=== PATIENT | male | born 1955 | race Caucasian/White ===

== ENCOUNTER 2025-10-23 09:00 | Outpatient (AMB) | payer MEDICARE, SELFPAY ==
--- NOTE | 2025-10-23 09:12 | A.PHYSOV ---
Vital Signs 10/23/25 09:13 Height 6 ft Weight 250 lb BMI 33.9 Intake Visit Reasons: Follow up after injection 08/16/25 Allergies No Known Allergies Allergy (Verified 10/17/25 15:04) HPI Comments Details: History of Present Illness The patient is a 70 year old male presenting for follow-up on chronic pain management for his back and knees. He reports that a recent injection for his back pain provided 80-90% relief. He underwent L5-S1 KIMMY on 08/16/2025. However, he subsequently fell while shoveling, landing directly on his back, though he notes that his back paradoxically felt better the following day, as if it had been put back into alignment. The patient has a history of major resurfacing surgery on his left knee due to severe arthritis, which was so advanced that a surgeon previously questioned how he was able to walk. The left knee is significantly better post-operatively, though he still experiences some soreness. He has now developed pain in his right knee, although the onset was not as acutely severe as his left knee was. Additionally, the patient reports pain in his shoulders that prevents him from sleeping on his side at night. He also mentions intermittent swelling of his left ankle, which he notes is a recurring issue possibly related to a tendon that resolves on its own. Patient is requesting repeat injection of his right knee today. Pain Description - Back: Patient reports that a recent injection provided 80-90% pain relief. - He had a recent fall on his back while shoveling. - Shoulders: Patient reports he cannot sleep on his side at night due to shoulder pain. - Knees: Reports his left knee is sore but not painful. - He has developed pain in the right knee, though it was not an excruciating onset. - Joints: Reports hearing a squeaking sound when walking barefoot at home. Procedure: L5-S1 KIMMY 08/16/2025 80% reduction of his pain right knee corticosteroid injection 10/23/2025 Results - Imaging: Patient reports a prior knee x-ray showed severe changes consistent with advanced arthritis. FORMERLY [facility], 1928–1983 Surgical History (Updated 10/17/25 @ 15:03 by Jolie Bustamante MA) H/O: knee surgery Social History (Updated 10/17/25 @ 15:04 by Jolie Bustamante MA) Alcohol intake: current Alcohol intake frequency: holidays/special occasions only Patient Tobacco Use Status: Current everyday Tobacco user Use of substances other than those prescribed or required for medical reasons: Yes Substance Use Type: Crack/Cocaine and Former Substance User Review of Systems Narrative Review of Systems - Musculoskeletal: Reports back pain, which improved with an injection. - Reports shoulder pain that interferes with sleep. - Reports soreness in the left knee and new pain in the right knee. - Reports intermittent left ankle swelling that resolves spontaneously. - Reports an audible squeak from a joint when walking. Physical Exam Exam Exam: Physical Exam Lumbar Spine: Examination of his lumbar spine, there is no visible swelling or deformity. He is tender to the lower lumbar facets. He has full range of motion of the lumbar spine with less discomfort. Special Tests: Lhermittes sign was negative Heel Toe walk is normal Left straight leg raise: Negative Right straight leg raise: Negative Special tests Loraine test is negative Ganslen's test is negative SI Joint compression test negative Kaveh test negative Piriformis stretch is negative Lower Extremities: Examination of his right knee, there is no effusion no deformity. He is tender to the medial joint line. He is otherwise nontender. Full range of motion of his knee in flexion-extension. Her ligaments are intact. He does have pain with Zahida testing medially. Neuro: Sensation: Intact to lower extremities bilaterally Strength L2 (Psoas): 5/5 on the left and 5/5 on the right. L3 (Quads): 5/5 on the left and 5/5 on the right. L4 (Ant tibialis): 5/5 on the left and 5/5 on the right. L5 (EHL) 5/5 on the left and 5/5 on the right. S1 (Gastroc): 5/5 on the left and 5/5 on the right. DTR L4: (Patellar) Left 2 Right 2 S1: (Achilles) Left 1 Right 1 Babinski Downgoing No pathologic clonus. No involuntary movement. Vital Signs: BMI result Body Mass Index 33.9 Office Procedures AMB Knee Injection AMB Knee Injection Procedure Details: Right Knee injection: The risks, benefits and complications of the right knee injection were discussed with the patient including but not limited to increased serum glucose, infection, nerve pain, fat atrophy, pigment augmentation, bleeding and pain. All questions were answered to the patient's satisfaction. Verbal consent was obtained. The patient was eager to proceed. Using aseptic technique with Betadine, ethyl chloride was then used to desensitize the skin. Using a 22-gauge needle 40 mg of Kenalog and 3 mL 2% lidocaine were injected into the knee joint. A Band-Aid was applied. Patient tolerated the procedure well without immediate complication. Postinjection instructions were given. Knee Injection - : Right All charges added?: Procedure code (CPT) selection complete Office Meds Kenalog 40 mg/mL suspension for injection Performing Provider: EDEN Gonzalez Performing Location: [facility] Administered by: EDEN Gonzalez on 10/24/25 13:04 Dose Route Admin Location Dispensed Lot Number Expiration Date [facility] [employer] 40 mg intra-articular 1 mL [id number] [employer] Total Dispensed Waste 1 mL 0 % lidocaine (PF) 20 mg/mL (2 %) injection solution Performing Provider: EDEN Gonzalez Performing Location: [facility] Administered by: EDEN Gonzalez on 10/24/25 13:04 Dose Route Admin Location Dispensed Lot Number Expiration Date [facility] [employer] 60 mg intra-articular 5 mL [id number] [employer] [employer] Total Dispensed Waste 5 mL 40 % Assessment & Plan Assessment & Plan (1) Lumbar radiculopathy: Code(s): M54.16 - Radiculopathy, lumbar region Category: Medical (2) Lumbar spondylosis: Code(s): M47.816 - Spondylosis without myelopathy or radiculopathy, lumbar region Category: Medical (3) Osteoarthritis of right knee: Code(s): M17.11 - Unilateral primary osteoarthritis, right knee Category: Medical Qualifiers: Osteoarthritis type: primary Qualified Code(s): M17.11 - Unilateral primary osteoarthritis, right knee Plan Pain Management - Analgesia: The patient receives injections for his back and knees. - His last back injection provided 80-90% relief. - He is scheduled to receive a knee injection during this visit. - Back injections are given three times a year. - Activities of Daily Living: Shoulder pain interferes with sleep, as he is unable to sleep on his side. Plan Patient was informed and verbally consented to the use of an ambient scribe for clinic note documentation during this visit. 1. Chronic Back Pain The patient reports his last back injection provided 80-90% relief and is still helping, despite a recent fall. He will continue with the current treatment plan of injections three times a year. The next injection is due in December, and the patient is advised to call in November to order it. 2. Right Knee Pain The patient reports new onset of pain in the right knee. An injection will be administered to the right knee during today's visit, as the last one was on May 28. Consent was obtained for the procedure. 3. Chronic Shoulder Pain The patient reports shoulder pain that inhibits his ability to sleep on his side. This was noted but not further addressed during the visit. 4. Intermittent Left Ankle Swelling The patient reports recurrent, self-resolving swelling in his left ankle. No new evaluation or treatment was planned during this visit. Discussion Notes I discussed the patient's ongoing chronic pain management. He confirmed significant relief from his last back injection and affirmed it is still helping, despite a minor fall. We discussed the plan to proceed with an injection for his right knee during today's visit, as it has been several months since the last one, and he consented to the procedure. I advised him that he is due for his next back injection in December and that he should call in November to have it ordered. I also reminded him that the back injections are typically administered three times per year. Patient Instructions - You will get an injection in your right knee today to help with the pain. - Your next injection for your back will be in December. - Please call our office in November to order the medication for your December back injection. Orders: Orders AMB Knee Injection 10/23/25 M17.11 - Unilateral primary osteoarthritis, right knee Coding Level of Care Code Est Pt Level 3 (93665) Diagnoses Lumbar radiculopathy M54.16 Lumbar spondylosis M47.816 Primary osteoarthritis of right knee M17.11 Osteoarthritis type: primary CPT Codes AMB Knee Injection - Hip/Bursa Injection - : Right ([id number])
[2025-10-23 09:13] VITALS: BMI 33.9
--- OUTSIDE RECORDS SUMMARY | 2025-10-23 09:51 | XMS_ITS ---
Author Name [facility] Organization Unknown History of Medication Use Medication Directions Dispensed Refills Start Date End Date Stat trimethoprim-polymyxin b (POLYTRIM) ophthalmic solution Administer 1 drop into the left eye every 6 (six) hours. 02/02/2025 active methocarbamol (ROBAXIN) 750 MG tablet Take 1 tablet (750 mg total) by mouth nightly as needed for muscle spasms. 05/23/2024 active methylPREDNISolone (MEDROL DOSEPAK) 4 MG tablet follow package directions 05/23/2024 active oxyCODONE (ROXICODONE) 5 MG immediate release tablet TAKE 1 TABLET BY MOUTH EVERY 4 HOURS NEEDED FOR SEVERE PAIN 04/23/2024 active celeCOXIB (CeleBREX) 200 MG capsule TAKE 1 CAPSULE BY MOUTH EVERY DAY FOR 33 DAYS DIRECTED. START 3 DAYS BEFORE SURGERY. 04/13/2024 active PANTOprazole (PROTONIX) 40 MG EC tablet Take 40 mg by mouth. 04/13/2024 active aspirin enteric coated (ECOTRIN) 325 MG EC tablet TAKE 1 TABLET BY MOUTH TWICE DAILY DIRECTED. START AFTER SURGERY. 03/26/2024 active docusate sodium (COLACE) 100 MG capsule TAKE 1 CAPSULE BY MOUTH TWICE DAILY NEEDED FOR CONSTIPATION. 03/26/2024 active albuterol (PROVENTIL HFA; VENTOLIN HFA) 108 (90 Base) MCG/ACT inhaler Inhale. 01/06/2022 active naproxen (NAPROSYN) 500 MG tablet Take 500 mg by mouth 2 (two) times a day with meals. Take with meals or food to reduce stomach upset. active tiZANidine (ZANAFLEX) 2 MG tablet Take 2 mg by mouth 3 (three) times a day. active Problems Problem Status Onset Date Problem Type Date of Resoluti on Source Hordeolum externum of left lower eyelid active EncounterDiagnosisAct HHCCT Encounters Encounter Type Encounter Reason Primary Diagnosis Location Date Ambulatory Hordeolum externum left lower eyelid Hordeolum externum left lower eyelid [facility] 02/02/2025 Ambulatory Back Pain [facility] 08/12/2024 Ambulatory Low back pain, unspecified Low back pain, unspecified [facility] 05/23/2024 Care Team Organization Name Specialty Phone Email Start Date End [facility] ANKIT العلي Primary Care 08/12/2024 [facility] Primary Care 05/25/2024 03/04/2025 [facility] Danyel Garner Primary Care 04/15/20232023 [facility] Hank Cordoba Primary Care 09/14/20222023
--- OUTSIDE RECORDS SUMMARY | 2025-10-23 09:51 | XMS_ITS | Clinical Summary ---
Author Organization [facility] Address [address] [place] [address] Phone Care Team Providers Care Retail Stocker Name Role Phone Kimmie Barger DO Primary Care Provider [phone] Allergies No known active allergies Medications albuterol HFA (PROAIR HFA ; PROVENTIL HFA ; VENTOLIN HFA) 90 mcg/actuation inhaler Inhale 2 puffs by mouth. 2 Active betamethasone, augmented, (DIPROLENE-AF) 0.05 % cream Apply topically. Active brimonidine 0.33 % gel with pump Apply pea sized amount to entire face daily. 2 Active metoprolol succinate (TOPROL-XL) 25 mg 24 hr tablet Take 0.5 tablets (12.5 mg total) by mouth. 3 Active metroNIDAZOLE (METROCREAM) 0.75 % cream Apply topically 2 (two) times a day. Active Active Problems No known active problems Surgical History Surgery Date Site/Laterality Comments KNEE ARTHROSCOPY age 25 PROCEDURE: MT ARTHROSCOPY AID TX SPINE&/FX KNEE W/O FIXJ; COMMENT: bone chip - right OTHER SURGICAL HISTORY age 19 PROCEDURE: MT UNLISTED PROCEDURE FEMUR/KNEE; COMMENT: L knee open - cartalage repair OTHER SURGICAL HISTORY 2002 PROCEDURE: MT EXCISION HYDROCELE UNILATERAL; COMMENT: Left COLONOSCOPY 10/11 PROCEDURE: MT COLONOSCOPY STOMA DX INCLUDING COLLJ SPEC SPX; COMMENT: polyps removed, repeat in 5 years COLONOSCOPY 11/04/08 PROCEDURE: MT COLONOSCOPY STOMA W/RMVL BESSIE POLYP/OTH LES SNARE; COMMENT: hyperplastic polyp, hemorrhoids, diverticulosis; repeat in 5 years COLONOSCOPY 02/10/17 PROCEDURE: HISTORICAL COLONOSCOPY; COMMENT: hemorrhoids; repeat in 5 yrs Medical History Medical History Date Comments Depressive disorder, not els ewhere classified DX:Depressive disorder, not elsewhere classified Overweight(278.02) DX:Overweight (278.02) Tobacco use disorder DX:Tobacco use disorder Unspecified sleep apnea DX:Unspe cified sleep apnea Unspecified sleep apnea 06/20/2006 DX:Unspe cified sleep apnea; COMMENT: CPAP Unspecified essential hypertension DX:Unspecified essential hypertension COPD (chronic obstructive pu lmonary disease) ([facility] V24, [facility] V28) Colon polyp Family History Medical History Relation Name Comments Arthritis Father Depression Father depression Hypertension Father Other: kidney transplant Father Thyroid disease Mother Other: COPD Paternal Grandfather Relation Name Status Comments Father Alcohol, kidney transplant, htn, depression Maternal Grandfather (Age 80s) C VA Maternal Grandmother (Age 80s) U K Mother Alive Hyperthyroid - surg excision - now hypothyroid Paternal Grandfather (Age 80s) U K - old age Paternal Grandmother (Age 80s) U K- old age Son Alive twins, age 27, healthy sleep apnea Social History Tobacco Use Types Packs/Day Years Used Date Smoking Tobacco: Every Day Cigarettes 1 51 Started: 1974 Smokeless Tobacco: Never Tobacco Cessation:Ready to Q uit: Not Asked; Counseling Given: Not Answered Alcohol Use Standard Drinks/Week Comments Yes 0 (1 standard drink = 0.6 oz pur e alcohol) Sex and Gender Information Value Date Recorded Sex Assigned at Not on file Legal Sex Male 12:18 PM EST Gender Identity Not on file Sexual Orientation Not on file Last Filed Vital Signs Vital Sign Reading Time Taken Comments Blood Pressure 136/70 06/18/2024 11:48 AM EDT Sitting L Arm Pulse 84 06/18/2024 11:48 AM EDT Temperature - - Respiratory Rate - - Oxygen Saturation - - Inhaled Oxygen Concentration - - Weight 116 kg (256 lb 3.2 oz) 11:48 AM EDT Height 182.9 cm (6') 06/18/2024 11:48 AM EDT Body Mass Index 34.75 06/18/2024 11:48 AM EDT Plan of Treatment Health Maintenance Due Date Last Done Comments Colorectal Cancer Screening: Colonoscopy 1955 Hepatitis A Vaccines (1 of 2 - Risk 2-dose series) 01/15/1976 RSV Immunization Adult Patients (1 - Risk 50-74 years 1-dose series) 2007 Zoster Vaccines (1 of 2) 2007 Abdominal Aortic Aneurysm (AAA) Screen 10/16/2022 Cholesterol Screening (Lipid Panel) 10/16/2022 Falls Risk Assessment 10/16/2022 Hepatitis C Screening 10/16/2022 Hypertension/CHF/CAD Annual BMP Blood Test 10/16/2022 Lung Cancer Screening (Low Dose CT) 10/16/2022 Medicare Annual Wellness Visit 10/16/2022 Social Influencers of Health Screening 10/16/2022 Pneumococcal Vaccine: 50+ Years (2 of 2 - PCV) 04/07/2023 04/07/2022, 06/20/2006 Depression Screening 11/07/2024 COVID-19 Vaccine (1 - 2024-2 6 season) 2025 Influenza Vaccine (#1) 2025 11/26/2008 DTaP,Tdap,and Td Vaccines (3 - Td or Tdap) 12/14/2028 12/14/2018, 11/06/2013 HIB Vaccines Aged Out No longer eligi ble based on patient's age to complete this topic HPV Vaccines Aged Out No longer eligi ble based on patient's age to complete this topic Hepatitis B Vaccines Aged Out No long er eligible based on patient's age to complete this topic IPV Vaccines Aged Out No longer eligi ble based on patient's age to complete this topic MMR Vaccines Aged Out No longer eligi ble based on patient's age to complete this topic Meningococcal ACWY Vaccine Aged Out N o longer eligible based on patient's age to complete this topic Meningococcal B Vaccine Aged Out No l onger eligible based on patient's age to complete this topic RSV Immunization Patients Under 20 months Aged Out No longer eligible b ased on patient's age to complete this topic Varicella Vaccines Aged Out No longer eligible based on patient's age to complete this topic Insurance MEDICARE Care Teams Retail Stocker Relationship Specialty Start Date End Date Kimmie Barger DO [address] [place] [id number] PCP - General Internal Medicine 09/05/24
--- OUTSIDE RECORDS SUMMARY | 2025-10-23 09:51 | XMS_ITS | Clinical Summary ---
Author Organization [facility] Address [address] [place] [address] Care Team Providers Care Certified Executive Chef Name Role Phone Geronimo Meek PA-C Primary Care Provider [phone] Allergies No known active allergies Medications PANTOprazole (PROTONIX) 40 MG EC tablet Take 40 mg by mouth. 4 Active oxyCODONE (ROXICODONE) 5 MG immediate release tablet TAKE 1 TABLET BY MOUTH EVERY 4 HOURS NEEDED FOR SEVERE PAIN 4 Active docusate sodium (COLACE) 100 MG capsule TAKE 1 CAPSULE BY MOUTH TWICE DAILY NEEDED FOR CONSTIPATION. 4 Active celeCOXIB (CeleBREX) 200 MG capsule TAKE 1 CAPSULE BY MOUTH EVERY DAY FOR 33 DAYS DIRECTED. START 3 DAYS BEFORE SURGERY. 4 Active aspirin enteric coated (ECOTRIN) 325 MG EC tablet TAKE 1 TABLET BY MOUTH TWICE DAILY DIRECTED. START AFTER SURGERY. 4 Active albuterol (PROVENTIL HFA; VENTOLIN HFA) 108 (90 Base) MCG/ACT inhaler Inhale. 2 Active methocarbamol (ROBAXIN) 750 MG tabletIndicatio ns:Acute right-sided low back pain without sciatica Take 1 tablet (750 mg total) by mouth nightly as needed for muscle spasms. 7 tablet 4 Active tiZANidine (ZANAFLEX) 2 MG tablet Take 2 mg by mouth 3 (three) times a day. Active naproxen (NAPROSYN) 500 MG tablet Take 500 mg by mouth 2 (two) times a day with meals. Take with meals or food to reduce stomach upset. Active trimethoprim-po lymyxin b (POLYTRIM) ophthalmic solutionIndicat ions:Hordeolum externum of left lower eyelid Administer 1 drop into the left eye every 6 (six) hours. 10 mL Active Active Problems No known active problems Social History Tobacco Use Types Packs/Day Years Used Date Smoking Tobacco: Unknown Tobacco Cessation:Counseling Given: Not Answered Sex and Gender Information Value Date Recorded Sex Assigned at Not on file Legal Sex Male 12:11 PM EDT Gender Identity Not on file Sexual Orientation Not on file Last Filed Vital Signs Vital Sign Reading Time Taken Comments Blood Pressure 136/72 02/02/2025 11:09 AM EDT Pulse 82 02/02/2025 11:09 AM EDT Temperature 36.9 C (98.5 F) 02/02/2025 11:09 AM EDT Respiratory Rate 18 02/02/2025 11:09 AM EDT Oxygen Saturation 98% 02/02/2025 11:09 AM EDT Inhaled Oxygen Concentration - - Weight 116 kg (255 lb) 02/02/2025 11:09 AM EDT Height 182.9 cm (6') 02/02/2025 11:09 AM EDT Body Mass Index 34.58 02/02/2025 11:09 AM EDT Plan of Treatment Health Maintenance Due Date Last Done Comments Advance Care Planning 1955 Hepatitis C Virus Screening 1955 DTaP/Tdap/Td Vaccines (1 - Tdap) 01/15/1976 Pneumococcal Vaccines 50+ (1 of 2 - PCV) 01/15/1976 Colonoscopy 2002 Zoster (Shingles) Vaccine (1 of 2) 2007 Influenza Vaccine 06/07/2025 COVID-19 Vaccine (1 - 2024-2 6 season) 2025 RSV Vaccine 50 years and old er and Patients (1 - 1-dose 75+ series) 01/15/2032 Hepatitis B Vaccines Aged Out No long er eligible based on patient's age to complete this topic Insurance MEDICARE PART A & B Care Teams Certified Executive Chef Relationship Specialty Start Date End Date Geronimo Meek PA-C [address] [place] [id number] PCP - General
== END 2025-10-23 09:43 | disposition home or self-care (01) ==
LOC: HO.HPHYS 09:01
PROVIDERS: Visit Provider Physician Assistant
DX: M54.16 Radiculopathy, lumbar region (principal); M47.816 Spondylosis without myelopathy or radiculopathy, lumbar region; M17.11 Unilateral primary osteoarthritis, right knee
CPT/HCPCS: 20610; 99213

== ENCOUNTER → 2025-10-23 09:00 | Outpatient (BNVA) | payer MEDICARE, SELFPAY | PROVIDERS: Visit Provider Physician Assistant | DX: M17.11 Unilateral primary osteoarthritis, right knee (principal); M47.816 Spondylosis without myelopathy or radiculopathy, lumbar region; G89.29 Other chronic pain; M25.511 Pain in right shoulder; M25.512 Pain in left shoulder | CPT/HCPCS: 20610; 99212; J2003; J3301 ==